=== PATIENT | female | born 1985 | race Caucasian/White ===

== ENCOUNTER 2017-07-23 11:49 | Outpatient (CLI) | payer OTHER ==
--- NOTE | 2017-07-23 14:24 | RAD ---
PA AND LATERAL CHEST: Date: 07/23/17 HISTORY: Flu-like symptoms, cough, fever. FINDINGS: The heart size is normal. There is elevation of the right hemidiaphragm. There is mild infiltrate in the right posterior lung base. No pneumothoraces or pleural effusions are seen. IMPRESSION: Right-sided pneumonia. POS: [facility]
== END 2017-07-23 11:50 | disposition home or self-care (01) ==
LOC: SCSRAD 11:49
PROVIDERS: ATTEND Family Medicine
DX: R68.89 Other general symptoms and signs (principal); J18.9 Pneumonia, unspecified organism
CPT/HCPCS: 71046